=== PATIENT | female | born 1955 | race Caucasian/White ===

== ENCOUNTER 2017-07-01 00:44 | Inpatient (IN) | payer BC ==
[~2017-07-01] VITALS: Ht 157.5 cm; Wt 85.0 kg
[2017-07-01] MEDS ORDERED: BENAZEPRIL HYDR20 M1 PO (02:55)
[2017-07-01] MEDS ORDERED: LIVALO4 M1 PO (02:56)
[2017-07-01] MEDS ORDERED: CYMBALTA60 M1 PO (02:56)
[2017-07-01 02:57] LABS: BASOPHIL % 1.3 % (0-2); PLATELET COUNT 207 x10^3mcL (130-400)
[2017-07-01] MEDS ORDERED: D3-50001 TAB PO (02:57)
[2017-07-01] MEDS ORDERED: METHOTREXATE2.5 M2 PO (02:57)
[2017-07-01 03:00] LABS: RED CELL DISTRIBUTION WIDTH 17.8 % (11.5-14.5)
[2017-07-01 03:05] LABS: CALCIUM 8.8 mg/dL (8.5-10.1); CARBON DIOXIDE 26.9 mmol/L (21-32); CHLORIDE SERUM 100 mmol/L (98-107); CREATININE SERUM 0.7 mg/dL (0.6-1.0); GFR1 > 60 mL/min; GLUCOSE SERUM 124 mg/dL (74-106); POTASSIUM SERUM 3.8 mmol/L (3.5-5.1); SODIUM SERUM 136 mmol/L (136-145)
[2017-07-01 03:09] LABS: ALBUMIN 3.8 g/dL (3.4-5.0); ALKALINE PHOSPHATASE 72 U/L (46-116); ALT/SGPT 20 U/L (14-59); AST/SGOT 19 U/L (15-37); BILIRUBIN TOTAL 0.24 mg/dL (0.20-1.00); LIPASE 156 IU/L (73-393)
[2017-07-01 03:58] VITALS: BP 150/75
[2017-07-01 05:31] VITALS: BP 142/83
[2017-07-01 06:36] LABS: T3 TOTAL 1.54 ng/mL
[2017-07-01 06:38] LABS: microscopic required? NO
[2017-07-01 06:39] LABS: CHOLESTEROL/HDL RATIO 3.5
[2017-07-01 06:47] LABS: FREE T4 1.22 ng/dL (0.76-1.46); FREE THYROXINE INDEX 3.7 ug/dL (1.4-4.5); T4(THYROXINE) 11.3 ug/dL (4.7-13.3)
[2017-07-01 08:47] LABS: UA SPECIFIC GRAVITY 1.025 (1.005-1.035); urine erythrocyte NEGATIVE (NEGATIVE)
[2017-07-01 08:52] VITALS: BP 120/69
[2017-07-01 09:05] LABS: AMPHETAMINE QUAL UR NONE DETECTED (NEG <=1000)
[2017-07-01 14:10] VITALS: BP 109/57
[2017-07-01 14:23] VITALS: Ht 157.5 cm; Wt 85.0 kg
[2017-07-01 17:33] VITALS: BP 117/69
[2017-07-01 22:04] VITALS: BP 110/70
[2017-07-02 05:17] VITALS: BP 109/61
[2017-07-02 06:27] LABS: BASOPHIL % 0.7 % (0-2); PLATELET COUNT 188 x10^3mcL (130-400)
[2017-07-02 06:30] LABS: CALCIUM 8.3 mg/dL (8.5-10.1); CARBON DIOXIDE 27.3 mmol/L (21-32); CHLORIDE SERUM 108 mmol/L (98-107); CREATININE SERUM 0.7 mg/dL (0.6-1.0); GFR1 > 60 mL/min; GLUCOSE SERUM 108 mg/dL (74-106); MAGNESIUM 2.1 mg/dL (1.8-2.4); PHOSPHOROUS 3.6 mg/dL (2.5-4.9); POTASSIUM SERUM 4.2 mmol/L (3.5-5.1); SODIUM SERUM 141 mmol/L (136-145)
[2017-07-02 07:02] LABS: RED CELL DISTRIBUTION WIDTH 16.7 % (11.5-14.5)
[2017-07-02 08:22] VITALS: BP 110/64
[2017-07-02 08:58] VITALS: BP 104/65
[2017-07-02 15:30] VITALS: BP 141/92
[2017-07-02 16:41] VITALS: BP 129/77
[2017-07-02 21:03] VITALS: BP 129/67
[2017-07-03 06:08] VITALS: BP 125/69
[2017-07-03 06:15] LABS: PLATELET COUNT 197 x10^3mcL (130-400)
[2017-07-03 06:41] LABS: CALCIUM 8.7 mg/dL (8.5-10.1); CARBON DIOXIDE 29.1 mmol/L (21-32); CHLORIDE SERUM 104 mmol/L (98-107); CREATININE SERUM 0.7 mg/dL (0.6-1.0); GFR1 > 60 mL/min; GLUCOSE SERUM 112 mg/dL (74-106); PHOSPHOROUS 2.6 mg/dL (2.5-4.9); POTASSIUM SERUM 4.2 mmol/L (3.5-5.1); SODIUM SERUM 138 mmol/L (136-145)
[2017-07-03 07:41] LABS: BASOPHIL % 2.3 % (0-2)
[2017-07-03] MEDS ORDERED: ULT50 PO (08:59)
[2017-07-03] MEDS ORDERED: COL100 PO (08:59)
[2017-07-03 09:50] VITALS: BP 146/83
[2017-07-03 11:53] VITALS: BP 146/83
== END 2017-07-03 14:20 | disposition home or self-care (01) | DRG 854 ==
LOC: ED 00:44 → DU 02:49 → MU 02:49 → DU 03:43 → MU 07-02 07:57
PROVIDERS: Emergency Medicine; Family Medicine; Student in an Organized Health Care Education/Training Program
PROC: 0FT44ZZ Resection of Gallbladder, Percutaneous Endoscopic Approach (ICD-10-PCS; principal; 2017-07-01)
DX: A41.9 Sepsis, unspecified organism (principal); K80.00 Calculus of gallbladder with acute cholecystitis without obstruction; K21.9 Gastro-esophageal reflux disease without esophagitis; M06.9 Rheumatoid arthritis, unspecified; Z96.643 Presence of artificial hip joint, bilateral; I10 Essential (primary) hypertension; M19.90 Unspecified osteoarthritis, unspecified site; E78.5 Hyperlipidemia, unspecified; F32.9 Major depressive disorder, single episode, unspecified; E02 Subclinical iodine-deficiency hypothyroidism; E86.0 Dehydration; R82.4 Acetonuria; D64.9 Anemia, unspecified
CPT/HCPCS: 84439; J0690; J0696; J1170; J2270; J2405; J3010; J3490; J7030; J8610; Q0092